=== PATIENT | male | born 1935 | race Caucasian/White ===

== ENCOUNTER 2017-02-16 11:03 | Emergency (ER) | payer OTHER ==
[2017-02-16 11:11] VITALS: RESP 18; TEMP 98.4; O2SAT 92
--- NOTE | 2017-02-16 11:17 | EDPHY ---
H & P Stated Complaint: mechanical fall, head lac Source: Patient Exam Limitations: No limitations - Personal History Current Tetanus Diphtheria and Acellular Pertussis (TDAP): Yes - Medical/Surgical History Hx Asthma: No Hx Chronic Respiratory Disease: No Hx Diabetes: No Hx Cardiac Disease: No Hx Renal Disease: No Hx Cirrhosis: No Hx Alcoholism: No Hx HIV/AIDS: No Hx Splenectomy or Spleen Trauma: No Other PMH: HTN, prostatectomy - Social History Smoking Status: Never smoked Time Seen by Provider: 02/16/17 11:04 HPI/ROS: CHIEF COMPLAINT: Mechanical fall, superficial forehead abrasion HISTORY OF PRESENT ILLNESS: The patient arrives by paramedics after he was witnessed by bystanders to have a mechanical fall while walking on a [employer] walk. The patient reportedly fell forward striking his head. The patient is uncertain whether he had a loss of consciousness. The patient tells me he was [place] to the [place] during the fall. He is somewhat confused as to the current time placing date. The patient states his past medical history is significant for hypertension. He denies any anti-platelet or anticoagulant use. The patient does complain of a mild frontal headache. The patient complains of some mild neck pain. The patient denies additional traumatic injury. The patient denies any recent history of fever, cough, congestion or illness. REVIEW OF SYSTEMS: A comprehensive 10 point review of systems is otherwise negative aside from elements mentioned in the history of present illness. (Osvaldo Sanchez) - Physical Exam Exam: General Appearance: Elderly male, no acute distress Head: 3 cm laceration over right eyebrow Eyes: Pupils equal, round, reactive ENT, Mouth: No hemotympanum, no oral trauma Neck: In cervical collar, minimal posterior cervical tenderness to palpation Respiratory: No chest wall tender, subcutaneous air, lungs clear bilaterally Cardiovascular: Regular rate and rhythm Abdomen: Abdomen is soft and nontender, pelvis stable Skin: No lacerations, No abrasion Back: No midline T/L/S pain Extremities: Nontender, full range of motion Neurological: A&Ox2, normal motor function, normal sensory exam (Osvaldo Sanchez) Constitutional: Initial Vital Signs Temperature (C) 36.9 C 02/16/17 11:08 Heart Rate 93 02/16/17 11:08 Respiratory Rate 18 02/16/17 11:08 Blood Pressure 163/78 H 02/16/17 11:08 O2 Sat (%) 92 02/16/17 11:08 O2 Delivery Mode Room Air Allergies/Adverse Reactions: No Known Allergies Allergy (Unverified 02/16/17 11:06) Home Medications: Medication Instructions Recorded Unknown Bp Med 02/16/17 Medical Decision Making - Diagnostics Imaging Results: Imaging Impressions Cervical Spine CT 02/16/17 11:11 Impression: Nothing acute. Probable old fracture versus congenital abnormality at T2-T3. Comment: Case was discussed with Dr. Osvaldo Sanchez at 11:[address] 02/16/17 11:11 Impression: Atrophy and microvascular ischemic disease. Nothing acute. Findings and recommendations discussed with Osvaldo Sanchez at 1144 hour, 02/16. Final report concurs with initial preliminary interpretation. Procedures: Procedure: Laceration repair. Verbal consent was obtained from the patient. The 3 cm laceration on the right eyebrow was anesthetized in the usual fashion. The wound was irrigated, draped and explored to its base with a gloved finger. There were no deep structures involved. No tendon injury was identified. The wound was repaired with 5 0 Prolene, 6 simple interrupted sutures. The wound repair was simple. The procedure was performed by myself. (Aba Marinelli) ED Course/Re-evaluation: The patient presents to the ED after a witnessed mechanical fall. The patient is not anticoagulated. He did have a significant laceration with associated hematoma over his right eyebrow. The patient was taken for a CT scan of the head and cervical spine given his age, mechanism of injury and chronically abnormal neurologic examination. His CT scans demonstrated no evidence of an acute fracture, intracranial hemorrhage or abnormality. The patient's laceration was repaired by the physician therapy assistant under my supervision. The patient underwent serial examinations by myself in the ED. He is ambulatory with a steady gait. He continues to have a normal neurologic examination aside from some mild disorientation to date. We were able to reach the patient's will come to the emergency department. The patient's presents to the ED. She tells me the patient does have a history of early Alzheimer's disease explaining his confusion to time and place. The patient is in no acute distress. He has no acute complaints. The patient will be discharged home with instructions to have suture removal performed in 5 days. He should return to the ED for any acute altered mental status, syncope, acute pain or other concerns. (Osvaldo Sanchez) Differential Diagnosis: Differential diagnosis considered includes intracranial hemorrhage, skull fracture, spinal cord injury, cervical spine fracture, laceration, metabolic abnormality (Osvaldo Sanchez) - Data Points Laboratory Results: Laboratory Results 02/16/17 11:05 02/16/17 11:05 02/16/17 02/16/17 02/16/17 11:05 11:05 11:05 WBC 8.03 10^3/uL 10^3/uL (3.80-9.50) RBC 5.55 10^6/uL 10^6/uL (4.40-6.38) Hgb 16.5 g/dL g/dL (13.7-17.5) Hct 48.6 % % (40.0-51.0) MCV 87.6 fL fL (81.5-99.8) MCH 29.7 pg pg (27.9-34.1) MCHC 34.0 g/dL g/dL (32.4-36.7) RDW 12.5 % % (11.5-15.2) Plt Count 271 10^3/uL 10^3/uL (150-400) MPV 10.3 fL fL (8.7-11.7) Neut % (Auto) 53.1 % % (39.3-74.2) Lymph % (Auto) 31.4 % % (15.0-45.0) Citrus % (Auto) 9.2 % % (4.5-13.0) Eos % (Auto) 4.6 % % (0.6-7.6) Baso % (Auto) 1.0 % % (0.3-1.7) Nucleat RBC Rel Count 0.0 % % (0.0-0.2) Absolute Neuts (auto) 4.26 10^3/uL 10^3/uL (1.70-6.50) Absolute Lymphs (auto) 2.52 10^3/uL 10^3/uL (1.00-3.00) Absolute Monos (auto) 0.74 10^3/uL 10^3/uL (0.30-0.80) Absolute Eos (auto) 0.37 10^3/uL 10^3/uL (0.03-0.40) Absolute Basos (auto) 0.08 10^3/uL 10^3/uL (0.02-0.10) Absolute Nucleated RBC 0.00 10^3/uL 10^3/uL (0-0.01) Immature Gran % 0.7 % % (0.0-1.1) Immature Gran # 0.06 10^3/uL 10^3/uL (0.00-0.10) PT 13.0 SEC SEC (12.0-15.0) INR 0.99 (0.83-1.16) APTT 27.8 SEC SEC (23.0-38.0) Sodium 137 mEq/L mEq/L (134-144) Potassium 3.6 mEq/L mEq/L (3.5-5.2) Chloride 99 mEq/L mEq/L (97-110) Carbon Dioxide 22 mEq/l mEq/l (22-31) Anion Gap 16 mEq/L mEq/L (8-16) BUN 12 mg/dL mg/dL (7-23) Creatinine 1.0 mg/dL mg/dL (0.7-1.3) Estimated GFR > 60 Glucose 112 mg/dL H mg/dL (70-100) Calcium 10.2 mg/dL mg/dL (8.5-10.4) Departure - Departure Disposition: Home, Routine, Self-Care Clinical Impression: Fall, Facial laceration, Alzheimers disease Condition: Good Instructions: Contusion in Adults (ED), Laceration (ED) Additional Instructions: 1. Please return to the emergency department in 5 days for suture removal. 2. Please return to the ED sooner for any abnormal behavior, new pain, vomiting or other concerns.
[2017-02-16 11:24] LABS: % IMMATURE GRANULYOCYTES 0.7 % (0.0-1.1); ABSOLUTE IMMATURE GRANULOCYTES 0.06 10^3/uL (0.00-0.10); ADD DIFF? NO; ADD MORPH? NO; ADD SCAN? NO; ATYPICAL LYMPHOCYTE FLAG 20 (0-99); FRAGMENT RBC FLAG 0 (0-99); HEMATOCRIT 48.6 % (40.0-51.0); HEMOGLOBIN 16.5 g/dL (13.7-17.5); LEFT SHIFT FLG 0 (0-99); LIPEMIA HEMOLYSIS FLAG 90 (0-99); MEAN CELL HEMOGLOBIN 29.7 pg (27.9-34.1); MEAN CELL VOLUME 87.6 fL (81.5-99.8); MEAN PLATELET VOLUME 10.3 fL (8.7-11.7); PLATELET CLUMPS FLAG 0 (0-99); PLATELET COUNT 271 10^3/uL (150-400); RED BLOOD CELL COUNT 5.55 10^6/uL (4.40-6.38); RED CELL DISTRIBUTION WIDTH 12.5 % (11.5-15.2)
[2017-02-16 11:31] LABS: INR 0.99 (0.83-1.16)
[2017-02-16 11:32] LABS: APTT 27.8 SEC (23.0-38.0)
[2017-02-16 11:52] LABS: ANION GAP 16 mEq/L (8-16); CALCIUM 10.2 mg/dL (8.5-10.4); CARBON DIOXIDE 22 mEq/l (22-31); CHLORIDE 99 mEq/L (97-110); GLOMERULAR FILTRATION RATE > 60; GLUCOSE 112 mg/dL (70-100); POTASSIUM 3.6 mEq/L (3.5-5.2); SODIUM 137 mEq/L (134-144)
[2017-02-16] MEDS ORDERED: LET GEL TOPICAL 1 EA SYR TP ONE (12:58)
[2017-02-16 15:05] VITALS: BP 169/94; PULSE 85
== END 2017-02-16 15:10 | disposition home or self-care (01) ==
LOC: EDUNIT#
PROC: 0HQ1XZZ Repair Face Skin, External Approach (ICD-10-PCS; principal; 2017-02-16)
DX: S01.111A Laceration without foreign body of right eyelid and periocular area, initial encounter (principal); G30.9 Alzheimer's disease, unspecified; I10 Essential (primary) hypertension; W18.39XA Other fall on same level, initial encounter; Y99.8 Other external cause status; Y93.01 Activity, walking, marching and hiking